=== PATIENT | female | born 1940 | race African-American/Black ===

== ENCOUNTER → 2016-09-23 | Outpatient (CLI) | payer OTHER ==
[~2016-09-23] MED LIST: CALCIUM + D 6001 TA1 PO; MULTIPLE VITAMI1 T12 PO; OSTEO BI-FLEX1 EAC1 PO; VITAMIN D1000 UNI1 PO
--- NOTE | ~2016-09-23 | US85 ---
[facility] A Service of [facility] RADIOLOGY TEXT RESULTS PATIENT: SUN AUGUST LOCATION: CNIV : 40 UNIT #: [id number] AGE: [address]: Sky Gu MD SEX: F ORDER DR: [id number] [facility] [address] [place], [place] [address] [id number] O MR#: [id number] Acc #: [id number] NAME: SUN AUGUST : 1940 SEX: F STUDY DATE/TIME: 09/23/2016 14:34 UNIT: CNIV ROOM: STUDY DESCRIPTION: LE Veins Unilat or Ltd Stdy Attending Physician: Sky Gu M.D. Referring Physician: Sky Gu M.D. Ordering Physician: Sky Gu M.D. Primary Care Physician: Tay Gould Jr., M.D. MEDICAL IMAGING REPORT This report is preliminary unless electronic signature is present EXAM Unilateral left lower extremity venous Doppler HISTORY Left leg pain behind knee for 1 week. TECHNIQUE Venous ultrasound examination of the left lower extremity was performed using grayscale, spectral Doppler and color flow Doppler imaging. FINDINGS The examination is negative. There is no evidence of left lower extremity deep venous thrombus from the groin to the lower calf. Visualized greater saphenous vein is also patent. IMPRESSION Negative examination. No evidence of left lower extremity deep venous thrombosis. Dictated by... Roderick Rose M.D. THIS IS AN ELECTRONICALLY VERIFIED REPORT Roderick Rose M.D. at 09/26/2016 2:17 PM KIMBERLEE/caitie TD: 09/24/2016 08:57 JOB #: [id number] MEDICAL IMAGING REPORT Page 1 of 1 COPY
== END | disposition home or self-care (01) ==
LOC: CNIV 13:39
DX: M79.89 Other specified soft tissue disorders (principal); M79.605 Pain in left leg
CPT/HCPCS: 93971

== ENCOUNTER → 2016-12-18 | Outpatient (CLI) | payer OTHER ==
--- NOTE | ~2016-12-18 | MY29 ---
[facility] A Service of [facility] RADIOLOGY TEXT RESULTS PATIENT: SUN AUGUST LOCATION: [facility] : 40 UNIT #: [id number] AGE: [address]: Tay Gould MD SEX: F ORDER DR: [id number] [facility] [address] [place], [place] [address] [id number] O MR#: [id number] Acc #: [id number] NAME: SUN AUGUST : 1940 SEX: F STUDY DATE/TIME: 12/18/2016 12:52 UNIT: [facility] ROOM: STUDY DESCRIPTION: [facility] SCREENING W/ CAD BILAT Attending Physician: Tay Gould Jr., M.D. Referring Physician: Tay Gould Jr., M.D. Ordering Physician: Tay Gould Jr., M.D. Primary Care Physician: Tay Gould Jr., M.D. MEDICAL IMAGING REPORT This report is preliminary unless electronic signature is present EXAM Bilateral digital screening mammogram with CAD, 12/18/2016 INDICATIONS 76-year-old female for routine screening. No reported problems, no personal or family history of breast cancer, no surgeries. TECHNIQUE CC and MLO views of the breasts were obtained and reviewed with an FDA-approved CAD device. COMPARISON 12/10/2015, 06/28/2015, 12/12/2014, 11/15/2014, 11/08/2013 FINDINGS Breast parenchyma is heterogeneously dense; this degrades sensitivity of screening mammography. The pattern is however, unchanged. There is no new dominant nodule, mass or suspicious cluster of microcalcifications. Subareolar ductal prominence bilaterally stable for technical factors. IMPRESSION 1. Benign screening mammogram. One-year followup recommended. Patients over the age of 40 are entered into a reminder system with target due date for the next mammogram. A result letter will also be sent to the patient. BIRADS: 2 Benign Finding [facility] A Service of [facility] RADIOLOGY TEXT RESULTS PATIENT: SUN AUGUST LOCATION: [facility] : 40 UNIT #: [id number] AGE: [address]: Tay Gould MD SEX: F ORDER DR: Dictated by... Alessandro Love M.D. THIS IS AN ELECTRONICALLY VERIFIED REPORT Alessandro Love M.D. at 12/18/2016 5:25 PM ANNIE/dianna TD: 12/18/2016 17:13 JOB #: [id number] MEDICAL IMAGING REPORT Page 1 of 1 COPY
== END | disposition home or self-care (01) ==
LOC: CWCC 12:19
DX: Z12.31 Encounter for screening mammogram for malignant neoplasm of breast (principal)
CPT/HCPCS: G0202